=== PATIENT | male | born 1980 | race African-American/Black ===

== ENCOUNTER 2017-07-23 15:03 | Emergency (ER) | payer OTHER ==
[~2017-07-23] VITALS: Ht 172.7 cm; Wt 68.0 kg
[2017-07-23 15:29] VITALS: BP 123/79
== END 2017-07-23 15:29 | disposition home or self-care (01) | DRG 923 ==
LOC: ED 15:03
DX: T75.89XA Other specified effects of external causes, initial encounter (principal); Y92.009 Unspecified place in unspecified non-institutional (private) residence as the place of occurrence of the external cause